=== PATIENT | female | born 1990 | race Caucasian/White ===

== ENCOUNTER 2019-12-25 22:44 | Observation (INO) ==
[2019-12-25] MEDS ORDERED: *HR* HYDROmorphone (PF) 1 MG/ML SYRINGE IVP ONE ×2 (22:51→23:42)
[2019-12-25] MEDS ORDERED: 0.9 % Sodium Chloride 1,000 ML IVC ONE (22:51)
[2019-12-25] MEDS ORDERED: Ondansetron 4 MG/2 ML VIAL IVP ONE (22:52)
[2019-12-25 23:51] LABS: Basophils % 0.3 %; Eosinophils # 0.1 K/mcL (0.0-0.6); Eosinophils % 0.6 %; Hematocrit 46.2 % (35.3-44.9); Hemoglobin 15.7 g/dL (11.5-15.4); Immature Granulocytes % 0.3 % (0-4); Lymphocytes % 33.9 %; Mean Corpuscular Hemoglobin 30.4 pg (28.0-33.3); Mean Corpuscular Volume 89.5 fL (83.0-100.0); Mean Platelet Volume 8.6 fL (9.4-12.4); Monocytes # 0.7 K/mcL (0.0-1.3); Monocytes % 7.6 %; Platelet Count 433 K/mcL (140-400); Red Blood Count 5.16 M/mcL (3.82-4.97); Red Cell Distribution Width 12.3 % (11.5-14.5); Segmented Neutrophils % 57.3 %; White Blood Count 8.7 K/mcL (4.3-11.1)
[2019-12-25 23:58] LABS: Alanine Aminotransferase 30 Units/L (7-52); Albumin/Globulin Ratio 1.4 (1.1-2.2); Alkaline Phosphatase 72 Units/L (34-104); Aspartate Amino Transferase 27 Units/L (13-39); BUN/Creatinine Ratio 17 (6-26); Bilirubin,Direct 0.2 mg/dL (0.0-0.2); Bilirubin,Indirect 0.6 mg/dL (0.0-1.0); Bilirubin,Total 0.8 mg/dL (0.3-1.0); Blood Urea Nitrogen 16 mg/dL (6-20); Calcium 10.4 mg/dL (8.6-10.3); Carbon Dioxide 21 mEq/L (23-29); Chloride 102 mEq/L (98-107); Globulin 3.7 g/dL (2.4-3.5); Glucose 116 mg/dL (70-105); Lipase 8 Units/L (11-82); Osmolality,Calculated 288 (280-300); Potassium 4.5 mEq/L (3.5-5.1); Sodium 138 mEq/L (136-145); Total Protein 8.7 g/dL (6.4-8.9); eGFR For African Americans > 60 (> 60); eGFR For Non-African Americans > 60 (> 60)
[2019-12-26] MEDS ORDERED: *HR* HYDROmorphone (PF) 1 MG/ML SYRINGE IVP ONE ×2 (01:44→06:24)
[2019-12-26 02:26] LABS: Bacteria,Urine Few per hpf (None-Few); Bilirubin,Urine Negative (Negative); Blood,Urine Negative (Negative); Clarity,Urine Clear (Clear); Color,Urine Yellow (Yellow); Glucose,Urine (UA) Normal (Normal); Hyaline Casts,Urine Few per lpf (None Seen); Ketones,Urine Trace mg/dL (Negative); Leukocyte Esterase,Urine Negative (Negative); Mucus,Urine Many per lpf (None-Few); Nitrite,Urine Negative (Negative); PH,Urine 5.5 pH Units (5.0-8.0); Protein,Urine 30 mg/dL (Neg-Trace); Squamous Epithelial Cell,Urine Few per hpf (None-Few); Urobilinogen,Urine Normal (Normal); WBC,Urine 15-30 per hpf (0-3)
[2019-12-26] MEDS ORDERED: Ketorolac 30 MG/ML VIAL IVP PRN (03:01)
[2019-12-26] MEDS ORDERED: D5% in 0.45% NACL 1,000 ML IVC SCH (03:29)
[2019-12-26] MEDS ORDERED: *HR* HYDROmorphone (PF) 1 MG/ML SYRINGE IVP PRN (03:29)
[2019-12-26] MEDS ORDERED: Naloxone 0.4 MG/ML INJ IVP PRN (03:29)
[2019-12-26] MEDS: Ketorolac 30 MG/ML VIAL IVP PRN ×2 (04:20→12:10)
[2019-12-26 06:33] VITALS: BP 135/82
[2019-12-26] MEDS ORDERED: Acetaminophen IV 1,000 MG/100 ML INFUS..BTL IVPB ONE (07:17)
[2019-12-26] MEDS ORDERED: *HR* LORazepam 2 MG/ML VIAL IVP ONE (07:25)
[2019-12-26] MEDS ORDERED: Bupivacaine/EPI 1:200k 0.25%PF 10 ML VIAL INFILT ONE (07:59)
[2019-12-26] MEDS ORDERED: Isovue-370 500 ML BOTTLE IVP ONE ×2 (08:20→08:30)
[2019-12-26] MEDS ORDERED: polyethylene glycoL 3350 17 GM POWD.PACK PO SCH (13:00)
== END 2019-12-26 13:44 | disposition home or self-care (01) ==
LOC: 3BNU 22:44 → 1NENUOBS 22:44 → EMEROOARM 22:44 → 1NENUOBS 12-26 03:41
PROVIDERS: ADMIT Internal Medicine; ATTEND Obstetrics & Gynecology